=== PATIENT | male | born 1965 | race Caucasian/White ===

== ENCOUNTER 2022-05-17 10:05 | Observation (INO) ==
[~2022-05-17 10:05] MED LIST: Buffered Lidocaine 1% SYRIN 1 ml INTRADERM ONE; Lactated Ringers 1000 ml BAG 1,000 ML IV SCH; Naloxone 0.4 mg VIAL 0.4 mg/ml 1 ml VIAL IV PRN; Ondansetron 4 mg VIAL 2 MG/ML 2 ml VIAL IV PRN; fentaNYL 100 mcg/2 ml 50 MCG/ML VIAL IV PRN; oxyCODONE/Acetamin 5/325 mg TAB PO PRN
[2022-05-17] MEDS ORDERED: ceFAZolin 2 GM PREMIX 2 GM/50 ML BAG ONE (10:55)
[2022-05-17] MEDS ORDERED: Dexmedetomidine 200 mcg/2 ml 2 ml VIAL (200 mcg) ONE (11:12)
[2022-05-17] MEDS ORDERED: Lidocaine 2% PF 5 ML VIAL ONE (11:12)
[2022-05-17] MEDS ORDERED: Dexamethasone IV 4 MG/ML VIAL 1 ml VIAL ONE (11:12)
[2022-05-17] MEDS ORDERED: Propofol 10 MG/ML 20 ML BTL ONE ×3 (11:12→14:07)
[2022-05-17] MEDS ORDERED: Ondansetron 4 mg VIAL 2 MG/ML 2 ml VIAL ONE (11:12)
[2022-05-17] MEDS ORDERED: Midazolam 2 mg/2 ml VIAL 1 mg/ml 2 ml VIAL (2 mg) ONE (11:13)
[2022-05-17] MEDS ORDERED: Ropivacaine 5 MG/ML 20 ML VIAL 0.5% (100 MG) ONE (12:08)
[2022-05-17] MEDS ORDERED: fentaNYL 100 mcg/2 ml 50 MCG/ML VIAL ONE (12:10)
[2022-05-17] MEDS ORDERED: ROPIVACAINE 5 MG/ML 30 ML BTL (0.5%) ONE (12:12)
[2022-05-17] MEDS ORDERED: Phenylephrine IV 10 MG/ML 1 ml VIAL ONE (14:11)
[2022-05-17] MEDS ORDERED: Magnesium Hydroxide LIQ 30 ML UDC PO PRN (14:16)
[2022-05-17] MEDS ORDERED: Ondansetron 4 mg VIAL 2 MG/ML 2 ml VIAL IV PRN (14:16)
[2022-05-17] MEDS ORDERED: Ondansetron ODT 4 mg TAB 4 MG TAB PO PRN (14:16)
[2022-05-17] MEDS ORDERED: Lactulose 30 ml UDC PO PRN (14:16)
[2022-05-17] MEDS ORDERED: ceFAZolin 1 GM ADVAN 1 GM in NS 0.9% 50 ML 50 ML IVPB SCH (15:00)
[2022-05-17] MEDS ORDERED: Dextrose 50% Syringe 50 ml 25 GM/50 ML SYRINGE IV PUSH PRN (17:22)
[2022-05-17] MEDS: Lactated Ringers 1000 ml BAG 1,000 ML IV SCH (18:44)
[2022-05-17] MEDS: ceFAZolin 1 GM ADVAN 1 GM in NS 0.9% 50 ML 50 ML IVPB SCH (21:51)
[2022-05-17] MEDS: Morphine 2 MG/ML SYRINGE IV PRN (21:59)
[2022-05-17] MEDS: Magnesium Hydroxide LIQ 30 ML UDC PO SCH (22:37)
[2022-05-18] MEDS: Morphine 2 MG/ML SYRINGE IV PRN ×4 (05:05→22:06)
[2022-05-18] MEDS: Lactated Ringers 1000 ml BAG 1,000 ML IV SCH (05:10)
[2022-05-18] MEDS: ceFAZolin 1 GM ADVAN 1 GM in NS 0.9% 50 ML 50 ML IVPB SCH ×2 (05:10→12:27)
[2022-05-18] MEDS ORDERED: HYDROmorphone 1 MG/1 ML SYRINGE IV ONE (05:58)
[2022-05-18 06:12] LABS: Hematocrit 34 % (42-52); Hemoglobin 11.7 g/dL (14.0-18.0); Mean Platelet Volume 8.9 fL (7.4-10.4); Platelet Count 180 10^3/uL (150-450)
[2022-05-18 06:50] LABS: Calcium 9.1 mg/dL (8.6-10.3); Potassium 4.3 mmol/L (3.5-5.0)
[2022-05-18] MEDS ORDERED: Morphine ER 15 mg TAB ** extended release PO SCH (08:00)
[2022-05-18] MEDS: Magnesium Hydroxide LIQ 30 ML UDC PO SCH ×2 (08:21→21:12)
[2022-05-18] MEDS: Vitamin THERAPEUTIC TAB PO SCH (08:21)
[2022-05-18] MEDS: Morphine ER 30 mg TAB ** extended release PO SCH (18:37)
[2022-05-19 05:23] LABS: Hematocrit 36 % (42-52); Hemoglobin 11.9 g/dL (14.0-18.0); Mean Platelet Volume 8.8 fL (7.4-10.4); Platelet Count 192 10^3/uL (150-450)
[2022-05-19] MEDS: Morphine ER 30 mg TAB ** extended release PO SCH ×2 (06:30→07:48)
[2022-05-19] MEDS: Vitamin THERAPEUTIC TAB PO SCH (08:29)
[2022-05-19] MEDS: Magnesium Hydroxide LIQ 30 ML UDC PO SCH (08:29)
[2022-05-19] MEDS ORDERED: Venlafaxine XR 75 mg PO SCH (10:00)
[2022-05-19 11:45] VITALS: BP 150/81
== END 2022-05-19 15:45 | disposition home or self-care (01) ==
LOC: AA 10:05 → INTOOBSV 10:05 → SSU 18:15
PROVIDERS: ADMIT Orthopaedic Surgery Adult Reconstructive Orthopaedic Surgery; ATTEND Orthopaedic Surgery Adult Reconstructive Orthopaedic Surgery

== ENCOUNTER 2023-04-07 12:44 | Observation (INO) ==
[2023-04-07 13:44] LABS: ABS Basophils 0.1 10^3/uL (0.0-0.1); ABS Eosinophils 0.1 10^3/uL (0.0-0.5); ABS Lymphocytes 1.4 10^3/uL (1.0-4.8); ABS Monocytes 1.2 10^3/uL (0.0-1.1); ABS Neutrophils 8.1 10^3/uL (1.5-7.6); ABS Nucleated RBC 0.02 10^3/ul; Eosinophil % 1.2 %; Hematocrit 42.6 % (38-53); Hemoglobin 14.6 g/dL (13.2-16.3); Lymphocyte % 12.8 %; Mean Corpuscular Hgb Conc 34.2 g/dL (31-36); Mean Corpuscular Volume 84.6 fL (80-97); Mean Platelet Volume 8.3 fL (7.5-11.2); Nucleated Red Blood Cells % 0.2 /100 WBC (0.0-0.4); Platelet Count 281 10^3/uL (150-450); Red Blood Count 5.03 10^6/uL (4.06-5.63); Red Cell Distribution Width 15.4 % (12-17); White Blood Count 10.9 10^3/uL (3.6-10.2)
[2023-04-07] MEDS ORDERED: Lactated Ringers 1000 ml BAG 1,000 ML IV ONE ×3 (13:47→16:22)
[2023-04-07 13:58] LABS: Albumin 4.1 g/dL (3.2-5.2); Albumin/Globulin Ratio 1.4 (1-3); Calcium 9.3 mg/dL (8.6-10.3); Creatinine, Serum 1.5 mg/dL (0.67-1.17); Potassium 4.1 mmol/L (3.5-5.0); Total Bilirubin 0.7 mg/dL (0.2-1.0); Total Protein 7.1 g/dL (6.4-8.9); eGFR CKD-EPI 53.6 (>60)
[2023-04-07] MEDS ORDERED: Iodixanol (CONTRAST) 320 MG/ML 100 ML SDV IV ONE (14:50)
[2023-04-07 17:33] LABS: Urine Appearance Clear; Urine Bilirubin Negative (Negative); Urine Blood Negative (Negative); Urine Color Yellow; Urine Glucose 3+(>=500 mg/dL) (Negative); Urine Ketones Negative (Negative); Urine Nitrite Negative (Negative); Urine Protein Negative (Negative); Urine Urobilinogen Negative (Negative)
[2023-04-07 17:52] LABS: Urine Specific Gravity > 1.060 (1.002-1.030)
[2023-04-07 19:43] LABS: High Sensitivity Troponin 1 Hr 4 pg/mL (<20)
[2023-04-07 20:57] LABS: C Reactive Protein 151.59 mg/L (<8.01); HDL Cholesterol 28.7 mg/dL
[2023-04-07] MEDS ORDERED: Lactated Ringers 1000 ml BAG 1,000 ML IV SCH (21:00)
[2023-04-07] MEDS ORDERED: Dextrose 50% Syringe 50 ml 25 GM/50 ML SYRINGE IV PUSH PRN (22:10)
[2023-04-07] MEDS: Enoxaparin 40 MG/0.4 ML SYR SUBCUT SCH (23:51)
[2023-04-07] MEDS: NS 0.9% 1000 ml BAG 1,000 ML IV SCH (23:51)
[2023-04-08] MEDS ORDERED: metroNIDAZOLE IV 500 MG/100ML 500 MG/100 ML BAG IVPB SCH (00:30)
[2023-04-08] MEDS ORDERED: Ciprofloxacin 400mg IVPREMIX 400 MG/200 ML BAG IVPB SCH (05:00)
[2023-04-08] MEDS ORDERED: Piperacillin/Tazobac 3.375 BAG 3.375 GM/100 ML BAG IV ONE (05:49)
[2023-04-08] MEDS ORDERED: Zosyn per Pharmacy NOTE FOLLOW UP SCH (06:00)
[2023-04-08 06:47] LABS: ABS Eosinophils 0.2 10^3/uL (0.0-0.5); ABS Lymphocytes 1.4 10^3/uL (1.0-4.8); ABS Monocytes 0.8 10^3/uL (0.0-1.1); ABS Neutrophils 5.2 10^3/uL (1.5-7.6); Eosinophil % 2.1 %; Hematocrit 36.7 % (38-53); Hemoglobin 12.7 g/dL (13.2-16.3); Mean Corpuscular Hemoglobin 29.3 pg (27-33); Mean Corpuscular Hgb Conc 34.6 g/dL (31-36); Mean Corpuscular Volume 84.5 fL (80-97); Mean Platelet Volume 8.1 fL (7.5-11.2); Nucleated Red Blood Cells % 0.1 /100 WBC (0.0-0.4); Platelet Count 219 10^3/uL (150-450); Red Blood Count 4.34 10^6/uL (4.06-5.63); Red Cell Distribution Width 14.8 % (12-17); White Blood Count 7.6 10^3/uL (3.6-10.2)
[2023-04-08 07:00] LABS: Albumin 3.6 g/dL (3.2-5.2); Albumin/Globulin Ratio 1.5 (1-3); Calcium 8.2 mg/dL (8.6-10.3); Creatinine, Serum 1.15 mg/dL (0.67-1.17); Globulin 2.4 g/dL (2-4); Potassium 3.8 mmol/L (3.5-5.0); Total Bilirubin 0.6 mg/dL (0.2-1.0); eGFR CKD-EPI 73.8 (>60)
[2023-04-08] MEDS ORDERED: Empagliflozin 25 MG TAB PO SCH (09:00)
[2023-04-08] MEDS: NS 0.9% 1000 ml BAG 1,000 ML IV SCH (09:51)
[2023-04-08] MEDS: ZOSYN 3.375 GM Q8H per EXTENDED INFUSION IV SCH ×2 (09:52→16:50)
[2023-04-08] MEDS: Venlafaxine XR 75 mg PO SCH (09:52)
[2023-04-08] MEDS: Enoxaparin 40 MG/0.4 ML SYR SUBCUT SCH (21:00)
[2023-04-09] MEDS: ZOSYN 3.375 GM Q8H per EXTENDED INFUSION IV SCH ×2 (01:38→09:34)
[2023-04-09 05:56] LABS: ABS Eosinophils 0.2 10^3/uL (0.0-0.5); ABS Lymphocytes 1.7 10^3/uL (1.0-4.8); ABS Monocytes 0.8 10^3/uL (0.0-1.1); ABS Nucleated RBC 0.01 10^3/ul; Eosinophil % 3.1 %; Hematocrit 36.3 % (38-53); Hemoglobin 12.4 g/dL (13.2-16.3); Lymphocyte % 21.6 %; Mean Corpuscular Hemoglobin 28.9 pg (27-33); Mean Corpuscular Hgb Conc 34.3 g/dL (31-36); Mean Corpuscular Volume 84.3 fL (80-97); Mean Platelet Volume 7.9 fL (7.5-11.2); Nucleated Red Blood Cells % 0.1 /100 WBC (0.0-0.4); Platelet Count 235 10^3/uL (150-450); Red Blood Count 4.31 10^6/uL (4.06-5.63); Red Cell Distribution Width 14.8 % (12-17); White Blood Count 7.7 10^3/uL (3.6-10.2)
[2023-04-09] MEDS: Venlafaxine XR 75 mg PO SCH (09:32)
[2023-04-09 14:44] VITALS: BP 110/68
== END 2023-04-09 16:45 | disposition home or self-care (01) ==
LOC: ED 12:44 → EDHOLD 21:16 → SUATTDRO 21:16 → INTOOBSV 21:16 → MED 23:08
PROVIDERS: ADMIT Internal Medicine; ATTEND Hospitalist